=== PATIENT | female | born 1940 | race Caucasian/White ===

== ENCOUNTER 2020-02-24 15:47 | Inpatient (IN) ==
[2020-02-24 16:17] LABS: Bilirubin,Urine Negative (Negative); Blood, Urine Negative (Negative); Glucose,Urine (UA) Negative (Negative); Ketones,Urine Negative (Negative); Nitrite,Urine Negative (Negative); Protein,Urine Negative; RBC,Urine 2 /HPF (0-4); Squamous Epithelial Cell,Urine Occasional /HPF (0-10); Urine Appearance CLEAR (Clear); Urine Color Yellow (Yellow); Urine Specific Gravity 1.009 (1.001-1.035); Urine Urobilinogen < 2.0 EU/DL (0.2-1.0); WBC,Urine 4 /HPF (0-6)
[2020-02-24] MEDS ORDERED: LACTATED RINGERS 1,000 ML IV ONE ×2 (16:26→17:43)
[2020-02-24] MEDS ORDERED: CEFEPIME 2,000 MG in SODIUM CHLORIDE 0.9% 100 ML IV STA (16:28)
[2020-02-24 16:48] LABS: Basophils % 0.2 % (0.0-0.8); Eosinophils % 0.2 % (0.00-10.9); Hematocrit 31.1 VOL% (35.7-47.0); Hemoglobin 10.6 GM/DL (12.0-16.0); Immature Granulocytes % 0.5 %; Lymphocytes # 1.1 10*3/uL (1.4-4.0); Lymphocytes % 5.5 % (21.3-54.2); Mean Corpuscular HGB Conc 34.1 GM/DL (32-36); Mean Corpuscular Volume 94.8 FL (87-102); Monocytes % 5.4 % (1.7-12.7); Neutrophils % 88.2 % (38.7-73.9); Platelet Count 276 T/CUMM (130-400); Red Blood Count 3.28 MC/CUMM (3.8-5.5); Red Cell Distribution Width 12.9 % (9.3-17.3); White Blood Count 20.4 T/CUMM (4-12)
[2020-02-24 16:59] LABS: INR 1.1; PT Patient Result 11.9 SECS (9.8-11.9); Partial Thromboplastin Time 30.2 SECS (23.9-33.8)
[2020-02-24 17:05] LABS: Alanine Aminotransferase 81 U/L (13-56); Albumin 2.9 G/DL (3.4-5.0); Alkaline Phosphatase 175 U/L (45-117); Aspartate Amino Transferase 111 U/L (0-37); Blood Urea Nitrogen 16 MG/DL (7-18); Calcium 8.6 MG/DL (8.5-10.1); Estimated Glom Filtration Rate 45 ML/MIN; Glucose 273 MG/DL (74-106); Osmolality,Calculated 270.8 MOS/KG (273-304); Total Protein 7.2 G/DL (6.4-8.3)
[2020-02-24] MEDS ORDERED: SODIUM CHLORIDE 0.9% IV STA (17:17)
[2020-02-24] MEDS ORDERED: VANCOMYCIN IV STA (17:17)
[2020-02-24 18:30] LABS: Lymphocytes 4 % (20-55); Segmented Neutrophils 93 % (50-85); Total Cells Counted 100
[2020-02-24] MEDS ORDERED: ONDANSETRON 4 MG/2 ML VIAL IV PRN (19:44)
[2020-02-24] MEDS ORDERED: ACETAMINOPHEN 325 MG TABLET PO PRN (19:44)
[2020-02-24] MEDS ORDERED: DEXTROSE 50% 25 GM/50 ML VIAL IV PRN (22:04)
[2020-02-24] MEDS ORDERED: MAGNESIUM SULF RIDER 2 GM in PREMIX 1 EACH IV PRN (22:04)
[2020-02-24] MEDS ORDERED: GLUCAGON 1 MG VIAL IM PRN (22:04)
[2020-02-24] MEDS ORDERED: POTASSIUM CHLORIDE RIDER 10 MEQ in PREMIX 1 EACH IV PRN (22:04)
[2020-02-24] MEDS ORDERED: MAGNESIUM SULF RIDER 4 GM in PREMIX 1 EACH IV PRN (22:04)
[2020-02-25] MEDS: LACTATED RINGERS 1,000 ML IV SCH ×5 (00:38→21:31)
[2020-02-25] MEDS: CEFEPIME 1,000 MG in SODIUM CHLORIDE 0.9% 100 ML IV SCH ×3 (01:10→16:06)
[2020-02-25] MEDS: INSULIN LISPRO 100 UNIT/ML SUBCUT SCH ×4 (01:40→17:46)
[2020-02-25 06:29] LABS: Basophils % 0.2 % (0.0-0.8); Eosinophils # 0.1 10*3/uL (0.0-0.87); Eosinophils % 0.9 % (0.00-10.9); Hematocrit 31.4 VOL% (35.7-47.0); Hemoglobin 10.3 GM/DL (12.0-16.0); Immature Granulocytes % 0.3 %; Immature Granulocytes Absolute 0.04 #; Lymphocytes # 2.2 10*3/uL (1.4-4.0); Mean Corpuscular HGB Conc 32.8 GM/DL (32-36); Mean Corpuscular Volume 96.9 FL (87-102); Mean Platelet Volume 9.1 FL (9.6-12.0); Monocytes % 7.9 % (1.7-12.7); Neutrophils % 73.7 % (38.7-73.9); Platelet Count 216 T/CUMM (130-400); Red Blood Count 3.24 MC/CUMM (3.8-5.5); Red Cell Distribution Width 13.1 % (9.3-17.3)
[2020-02-25 06:41] LABS: INR 1.2; PT Patient Result 12.3 SECS (9.8-11.9)
[2020-02-25] MEDS: LEVOTHYROXINE 100 MCG TABLET PO SCH (06:51)
[2020-02-25 07:01] LABS: Band Neutrophils 4 % (0-10); Hypochromasia 1+; Lymphocytes 13 % (20-55); Microcytosis 1+; Segmented Neutrophils 80 % (50-85); Total Cells Counted 100
[2020-02-25 07:02] LABS: Platelet Estimate Normal
[2020-02-25 07:03] LABS: Albumin 2.8 G/DL (3.4-5.0); Bilirubin,Direct 0.26 MG/DL (0.0-0.20); Bilirubin,Indirect 0.5 MG/DL (0.0-1.0); Bilirubin,Total 0.8 MG/DL (0.2-1.0); Calcium 8.9 MG/DL (8.5-10.1); Osmolality,Calculated 274.8 MOS/KG (273-304); Total Protein 6.8 G/DL (6.4-8.3)
[2020-02-25] MEDS: GABAPENTIN 400 MG CAPSULE PO SCH ×3 (09:39→21:47)
[2020-02-25] MEDS: PANTOPRAZOLE 40 MG TABLET PO SCH (09:40)
[2020-02-25] MEDS: TORSEMIDE 20 MG TABLET PO SCH ×2 (09:40→21:47)
[2020-02-25] MEDS: SERTRALINE 25 MG TABLET PO SCH (09:43)
[2020-02-25] MEDS: oxyCODONE/ACETAMINOPHEN 5-325 MG TABLET PO SCH ×2 (15:35→21:48)
[2020-02-25] MEDS: MORPHINE IR 15 MG TABLET PO SCH ×2 (15:35→21:49)
[2020-02-25] MEDS: VANCOMYCIN INJ 1,750 MG in SODIUM CHLORIDE 0.9% 500 ML IV SCH (21:32)
[2020-02-25] MEDS: SIMVASTATIN 20 MG TABLET PO SCH (21:48)
[2020-02-26] MEDS: LACTATED RINGERS 1,000 ML IV SCH ×2 (00:27→18:58)
[2020-02-26] MEDS: INSULIN LISPRO 100 UNIT/ML SUBCUT SCH ×4 (00:28→17:20)
[2020-02-26] MEDS: CEFEPIME 1,000 MG in SODIUM CHLORIDE 0.9% 100 ML IV SCH ×3 (03:14→17:19)
[2020-02-26 06:06] LABS: Basophils % 0.3 % (0.0-0.8); Eosinophils # 0.3 10*3/uL (0.0-0.87); Eosinophils % 2.3 % (0.00-10.9); Hematocrit 32.8 VOL% (35.7-47.0); Hemoglobin 10.9 GM/DL (12.0-16.0); Immature Granulocytes % 0.5 %; Immature Granulocytes Absolute 0.06 #; Lymphocytes # 2.5 10*3/uL (1.4-4.0); Lymphocytes % 22.7 % (21.3-54.2); Mean Corpuscular HGB Conc 33.2 GM/DL (32-36); Mean Corpuscular Volume 95.9 FL (87-102); Mean Platelet Volume 9.1 FL (9.6-12.0); Monocytes % 10.9 % (1.7-12.7); Neutrophils % 63.3 % (38.7-73.9); Platelet Count 255 T/CUMM (130-400); Red Blood Count 3.42 MC/CUMM (3.8-5.5); Red Cell Distribution Width 12.9 % (9.3-17.3); White Blood Count 11.1 T/CUMM (4-12)
[2020-02-26 06:30] LABS: Albumin 2.7 G/DL (3.4-5.0); Bilirubin,Total 0.9 MG/DL (0.2-1.0); Calcium 8.8 MG/DL (8.5-10.1); Osmolality,Calculated 281.4 MOS/KG (273-304); Total Protein 7.2 G/DL (6.4-8.3)
[2020-02-26 06:31] LABS: Hypochromasia 1+; Microcytosis Slight; Platelet Estimate Adequate
[2020-02-26] MEDS: LEVOTHYROXINE 100 MCG TABLET PO SCH (06:32)
[2020-02-26] MEDS: PANTOPRAZOLE 40 MG TABLET PO SCH (09:55)
[2020-02-26] MEDS: TORSEMIDE 20 MG TABLET PO SCH ×2 (10:09→21:59)
[2020-02-26] MEDS: MORPHINE IR 15 MG TABLET PO SCH ×4 (10:09→21:58)
[2020-02-26] MEDS: GABAPENTIN 400 MG CAPSULE PO SCH ×4 (10:09→21:59)
[2020-02-26] MEDS: SERTRALINE 25 MG TABLET PO SCH (10:10)
[2020-02-26] MEDS: oxyCODONE/ACETAMINOPHEN 5-325 MG TABLET PO SCH ×4 (10:11→21:59)
[2020-02-26] MEDS ORDERED: BACITRACIN OINT 0.9 GM PACK TOP ONE (10:32)
[2020-02-26] MEDS ORDERED: LIDOCAINE 1%/EPI INJ 20 ML VIAL ONE (10:33)
[2020-02-26] MEDS ORDERED: LIDOCAINE 1% 20 ML VIAL ONE (10:53)
[2020-02-26] MEDS ORDERED: HYDROmorphone 2 MG/1 ML VIAL IV PRN (12:33)
[2020-02-26] MEDS ORDERED: PROMETHAZINE INJ 25 MG in SODIUM CHLORIDE 0.9% 50 ML IV PRN (12:33)
[2020-02-26] MEDS ORDERED: diphenhydrAMINE 50 MG/1 ML VIAL IV PRN (12:33)
[2020-02-26] MEDS ORDERED: ONDANSETRON 4 MG/2 ML VIAL IV PRN (12:33)
[2020-02-26] MEDS ORDERED: MEPERIDINE 25 MG/1 ML VIAL IV PRN (12:33)
[2020-02-26] MEDS ORDERED: propofoL 200 MG/20 ML VIAL IV ONE (12:42)
[2020-02-26] MEDS ORDERED: PHENYLEPHRINE 1 MG/10 ML SYRINGE IV ONE (12:43)
[2020-02-26] MEDS ORDERED: ROCURONIUM 100 MG/10 ML VIAL IV ONE (12:43)
[2020-02-26] MEDS ORDERED: LIDOCAINE 2% 5 ML VIAL ONE (12:43)
[2020-02-26] MEDS ORDERED: MIDAZOLAM 2 MG/2 ML VIAL ONE (12:43)
[2020-02-26] MEDS ORDERED: SEVOFLURANE 1 UNIT/15 MINUTE INH ONE (12:43)
[2020-02-26] MEDS ORDERED: GLYCOPYRROLATE 0.4 MG/2 ML VIAL ONE (12:43)
[2020-02-26] MEDS ORDERED: fentaNYL 100 MCG/2 ML VIAL ONE (12:43)
[2020-02-26] MEDS ORDERED: ONDANSETRON 4 MG/2 ML VIAL ONE (12:43)
[2020-02-26] MEDS ORDERED: NEOSTIGMINE 10 MG/10 ML VIAL ONE (12:43)
[2020-02-26] MEDS: SIMVASTATIN 20 MG TABLET PO SCH (21:59)
[2020-02-26] MEDS: VANCOMYCIN INJ 1,750 MG in SODIUM CHLORIDE 0.9% 500 ML IV SCH (21:59)
[2020-02-27] MEDS: INSULIN LISPRO 100 UNIT/ML SUBCUT SCH ×4 (01:16→18:21)
[2020-02-27] MEDS: CEFEPIME 1,000 MG in SODIUM CHLORIDE 0.9% 100 ML IV SCH ×3 (01:48→16:37)
[2020-02-27] MEDS: LEVOTHYROXINE 100 MCG TABLET PO SCH (06:17)
[2020-02-27] MEDS: LACTATED RINGERS 1,000 ML IV SCH ×2 (06:17→22:53)
[2020-02-27] MEDS: TORSEMIDE 20 MG TABLET PO SCH ×2 (08:17→21:48)
[2020-02-27] MEDS: GABAPENTIN 400 MG CAPSULE PO SCH ×3 (08:17→21:48)
[2020-02-27] MEDS: oxyCODONE/ACETAMINOPHEN 5-325 MG TABLET PO SCH ×3 (08:17→21:48)
[2020-02-27] MEDS: SERTRALINE 25 MG TABLET PO SCH (08:18)
[2020-02-27] MEDS: MORPHINE IR 15 MG TABLET PO SCH ×4 (08:18→21:47)
[2020-02-27] MEDS: PANTOPRAZOLE 40 MG TABLET PO SCH (08:18)
[2020-02-27 10:19] LABS: Basophils % 0.5 % (0.0-0.8); Eosinophils # 0.1 10*3/uL (0.0-0.87); Hematocrit 32.9 VOL% (35.7-47.0); Hemoglobin 10.8 GM/DL (12.0-16.0); Immature Granulocytes % 1.2 %; Immature Granulocytes Absolute 0.07 #; Lymphocytes # 0.7 10*3/uL (1.4-4.0); Lymphocytes % 11.9 % (21.3-54.2); Mean Corpuscular HGB Conc 32.8 GM/DL (32-36); Mean Corpuscular Volume 96.5 FL (87-102); Mean Platelet Volume 8.6 FL (9.6-12.0); Monocytes % 8.7 % (1.7-12.7); Neutrophils % 76.7 % (38.7-73.9); Platelet Count 285 T/CUMM (130-400); Red Blood Count 3.41 MC/CUMM (3.8-5.5)
[2020-02-27 10:29] LABS: PT Patient Result 11.2 SECS (9.8-11.9)
[2020-02-27] MEDS ORDERED: oxyCODONE/ACETAMINOPHEN 5-325 MG TABLET PO PRN (12:34)
[2020-02-27] MEDS ORDERED: MORPHINE ER 30 MG TABLET PO SCH (13:00)
[2020-02-27] MEDS ORDERED: BACITRACIN OINT 0.9 GM PACK TOP ONE (14:12)
[2020-02-27] MEDS: CALCIUM (CARBONATE)/VITAMIN D 600 MG-400 UNIT TABLET PO SCH ×2 (14:13→21:49)
[2020-02-27] MEDS ORDERED: LIDOCAINE 1%/EPI INJ 20 ML VIAL ONE (14:13)
[2020-02-27] MEDS: Cyanocobalamin (Vitamin B-12) [Vitamin B-12] 5,000 mcg Tablet, S SL SCH ×2 (14:15→22:52)
[2020-02-27] MEDS: PYRIDOXINE 100 MG TABLET PO SCH ×2 (15:42→21:49)
[2020-02-27] MEDS ORDERED: METOCLOPRAMIDE 10 MG/2 ML VIAL ONE (19:43)
[2020-02-27] MEDS ORDERED: propofoL 200 MG/20 ML VIAL IV ONE (20:40)
[2020-02-27] MEDS ORDERED: LIDOCAINE 2% 5 ML VIAL ONE (20:40)
[2020-02-27] MEDS ORDERED: MIDAZOLAM 2 MG/2 ML VIAL ONE (20:40)
[2020-02-27] MEDS ORDERED: ONDANSETRON 4 MG/2 ML VIAL ONE (20:40)
[2020-02-27] MEDS: SIMVASTATIN 20 MG TABLET PO SCH (21:48)
[2020-02-27] MEDS: CHOLECALCIFEROL 5,000 UNIT TABLET PO SCH (21:49)
[2020-02-27] MEDS: VANCOMYCIN INJ 1,750 MG in SODIUM CHLORIDE 0.9% 500 ML IV SCH (21:50)
[2020-02-28] MEDS: INSULIN LISPRO 100 UNIT/ML SUBCUT SCH ×4 (00:58→19:03)
[2020-02-28] MEDS: CEFEPIME 1,000 MG in SODIUM CHLORIDE 0.9% 100 ML IV SCH ×3 (00:58→16:47)
[2020-02-28 05:19] LABS: Basophils % 0.4 % (0.0-0.8); Eosinophils # 0.2 10*3/uL (0.0-0.87); Eosinophils % 2.8 % (0.00-10.9); Hematocrit 30.5 VOL% (35.7-47.0); Hemoglobin 9.9 GM/DL (12.0-16.0); Immature Granulocytes % 0.9 %; Immature Granulocytes Absolute 0.06 #; Lymphocytes # 1.9 10*3/uL (1.4-4.0); Lymphocytes % 28.2 % (21.3-54.2); Mean Corpuscular HGB Conc 32.5 GM/DL (32-36); Mean Corpuscular Volume 96.5 FL (87-102); Mean Platelet Volume 8.5 FL (9.6-12.0); Monocytes % 14.5 % (1.7-12.7); Neutrophils % 53.2 % (38.7-73.9); Platelet Count 308 T/CUMM (130-400); Red Blood Count 3.16 MC/CUMM (3.8-5.5); Red Cell Distribution Width 12.9 % (9.3-17.3); White Blood Count 6.7 T/CUMM (4-12)
[2020-02-28 05:45] LABS: Hypochromasia 1+; Microcytosis Slight; Ovalocytes Slight; Platelet Estimate Adequate
[2020-02-28] MEDS: LEVOTHYROXINE 100 MCG TABLET PO SCH (05:50)
[2020-02-28 05:51] LABS: Thyroid Stimulating Hormone 13.2 uIU/ml (0.358-3.74)
[2020-02-28 05:53] LABS: Albumin 2.3 G/DL (3.4-5.0); Bilirubin,Total 0.9 MG/DL (0.2-1.0); Calcium 8.4 MG/DL (8.5-10.1); Total Protein 6.3 G/DL (6.4-8.3)
[2020-02-28] MEDS ORDERED: POTASSIUM CHLORIDE RIDER 10 MEQ in PREMIX 1 EACH IV PRN (06:08)
[2020-02-28] MEDS: POTASSIUM CHLORIDE RIDER 10 MEQ in PREMIX 1 EACH IV SCH ×4 (08:59→13:47)
[2020-02-28] MEDS: GABAPENTIN 400 MG CAPSULE PO SCH ×3 (09:00→20:45)
[2020-02-28] MEDS: oxyCODONE/ACETAMINOPHEN 5-325 MG TABLET PO SCH (09:00)
[2020-02-28] MEDS: PANTOPRAZOLE 40 MG TABLET PO SCH (09:02)
[2020-02-28] MEDS: CALCIUM (CARBONATE)/VITAMIN D 600 MG-400 UNIT TABLET PO SCH ×3 (09:02→20:45)
[2020-02-28] MEDS: TORSEMIDE 20 MG TABLET PO SCH ×3 (09:02→20:51)
[2020-02-28] MEDS: glipiZIDE 5 MG TABLET PO SCH (09:02)
[2020-02-28] MEDS: SERTRALINE 25 MG TABLET PO SCH (09:02)
[2020-02-28] MEDS: ASPIRIN EC 81 MG TABLET PO SCH (09:02)
[2020-02-28] MEDS: PYRIDOXINE 100 MG TABLET PO SCH ×3 (09:03→20:45)
[2020-02-28] MEDS: MORPHINE IR 15 MG TABLET PO SCH ×3 (10:07→20:44)
[2020-02-28] MEDS: Cyanocobalamin (Vitamin B-12) [Vitamin B-12] 5,000 mcg Tablet, S SL SCH ×3 (10:13→20:56)
[2020-02-28] MEDS: VANCOMYCIN INJ 1,750 MG in SODIUM CHLORIDE 0.9% 500 ML IV SCH (20:37)
[2020-02-28] MEDS: SIMVASTATIN 20 MG TABLET PO SCH (20:45)
[2020-02-28] MEDS: CHOLECALCIFEROL 5,000 UNIT TABLET PO SCH (20:45)
[2020-02-28] MEDS: POTASSIUM CHLORIDE 20 MEQ TABLET PO PRN (21:37)
[2020-02-29] MEDS: POTASSIUM CHLORIDE 20 MEQ TABLET PO PRN ×3 (00:10→03:09)
[2020-02-29] MEDS: CEFEPIME 1,000 MG in SODIUM CHLORIDE 0.9% 100 ML IV SCH ×2 (00:29→08:58)
[2020-02-29] MEDS: INSULIN LISPRO 100 UNIT/ML SUBCUT SCH ×2 (01:01→05:41)
[2020-02-29 06:15] LABS: Basophils # 0.1 10*3/uL (0.0-0.2); Basophils % 0.6 % (0.0-0.8); Eosinophils # 0.3 10*3/uL (0.0-0.87); Eosinophils % 4.2 % (0.00-10.9); Immature Granulocytes % 2.4 %; Immature Granulocytes Absolute 0.19 #; Lymphocytes # 2.6 10*3/uL (1.4-4.0); Lymphocytes % 33.3 % (21.3-54.2); Mean Corpuscular HGB Conc 32.3 GM/DL (32-36); Mean Corpuscular Volume 96.3 FL (87-102); Mean Platelet Volume 8.5 FL (9.6-12.0); Monocytes % 11.2 % (1.7-12.7); Neutrophils % 48.3 % (38.7-73.9); Platelet Count 341 T/CUMM (130-400); Red Blood Count 3.22 MC/CUMM (3.8-5.5); Red Cell Distribution Width 12.8 % (9.3-17.3); White Blood Count 7.9 T/CUMM (4-12)
[2020-02-29] MEDS ORDERED: LEVOTHYROXINE 112 MCG TABLET PO SCH (06:30)
[2020-02-29 06:42] LABS: Albumin 2.4 G/DL (3.4-5.0); Osmolality,Calculated 280.5 MOS/KG (273-304); Total Protein 6.5 G/DL (6.4-8.3)
[2020-02-29 06:47] LABS: Eosinophils 3 % (0-10); Hypochromasia Slight; Lymphocytes 31 % (20-55); Myelocytes 2 %; Nucleated Red Blood Cells 3 (0-5); Platelet Estimate Normal; Segmented Neutrophils 56 % (50-85); Total Cells Counted 100
[2020-02-29] MEDS: MORPHINE IR 15 MG TABLET PO SCH (08:59)
[2020-02-29] MEDS: GABAPENTIN 400 MG CAPSULE PO SCH (09:00)
[2020-02-29] MEDS ORDERED: SULFAMETHOX/TRIMETHOPRIM 800-160 MG TABLET PO SCH (09:00)
[2020-02-29] MEDS ORDERED: POTASSIUM CHLORIDE 10 MEQ TABLET PO SCH (09:00)
[2020-02-29] MEDS: glipiZIDE 5 MG TABLET PO SCH (09:01)
[2020-02-29] MEDS: PANTOPRAZOLE 40 MG TABLET PO SCH (09:01)
[2020-02-29] MEDS: CALCIUM (CARBONATE)/VITAMIN D 600 MG-400 UNIT TABLET PO SCH (09:01)
[2020-02-29] MEDS: PYRIDOXINE 100 MG TABLET PO SCH (09:01)
[2020-02-29] MEDS: SERTRALINE 25 MG TABLET PO SCH (09:01)
[2020-02-29] MEDS: ASPIRIN EC 81 MG TABLET PO SCH (09:01)
[2020-02-29] MEDS: TORSEMIDE 20 MG TABLET PO SCH (09:02)
[2020-02-29] MEDS: Cyanocobalamin (Vitamin B-12) [Vitamin B-12] 5,000 mcg Tablet, S SL SCH (09:04)
[2020-02-29 12:12] VITALS: BP 122/57
== END 2020-02-29 12:27 | disposition home health service (06) | DRG 28 ==
LOC: N.ED 15:47 → N.EDINP 19:43 → N.TELES 20:27 → N.TELEN 22:44
PROVIDERS: ADMIT Family Medicine; ATTEND Family Medicine

== ENCOUNTER 2020-08-31 04:56 | Inpatient (IN) ==
[2020-08-31 05:51] LABS: Basophils % 0.2 % (0.0-0.8); Eosinophils # 0.2 10*3/uL (0.0-0.87); Eosinophils % 2.7 % (0.00-10.9); Hematocrit 34.3 VOL% (35.7-47.0); Hemoglobin 11.3 GM/DL (12.0-16.0); Immature Granulocytes % 0.3 %; Immature Granulocytes Absolute 0.02 #; Lymphocytes # 1.8 10*3/uL (1.4-4.0); Lymphocytes % 28.8 % (21.3-54.2); Mean Corpuscular HGB Conc 32.9 GM/DL (32-36); Mean Corpuscular Volume 93.2 FL (87-102); Monocytes % 14.9 % (1.7-12.7); Neutrophils % 53.1 % (38.7-73.9); Platelet Count 207 T/CUMM (130-400); Red Blood Count 3.68 MC/CUMM (3.8-5.5); White Blood Count 6.4 T/CUMM (4-12)
[2020-08-31 06:13] LABS: Albumin 3.7 G/DL (3.4-5.0); Bilirubin,Total 1.3 MG/DL (0.2-1.0); Calcium 9.1 MG/DL (8.5-10.1); Potassium 3.6 MMOL/L (3.5-5.1); Total Protein 7.1 G/DL (6.4-8.2)
[2020-08-31] MEDS ORDERED: HYDROmorphone 2 MG/1 ML VIAL IV STA (07:18)
[2020-08-31] MEDS ORDERED: ONDANSETRON 4 MG/2 ML VIAL IV STA (07:18)
[2020-08-31] MEDS ORDERED: ACETAMINOPHEN 325 MG TABLET PO PRN (08:51)
[2020-08-31] MEDS ORDERED: ONDANSETRON 4 MG/2 ML VIAL IV PRN (08:51)
[2020-08-31] MEDS ORDERED: HYDROmorphone 2 MG/1 ML VIAL IV PRN (08:51)
[2020-08-31] MEDS ORDERED: GLUCAGON 1 MG VIAL IM PRN (08:56)
[2020-08-31] MEDS ORDERED: DEXTROSE 50% 25 GM/50 ML VIAL IV PRN (08:56)
[2020-08-31] MEDS ORDERED: POTASSIUM CHLORIDE 20 MEQ TABLET PO SCH (09:00)
[2020-08-31] MEDS ORDERED: oxyCODONE/ACETAMINOPHEN 5-325 MG TABLET PO PRN (11:38)
[2020-08-31] MEDS: Cyanocobalamin (Vitamin B-12) [Vitamin B-12] 5,000 mcg Tablet, S SL SCH ×3 (11:51→20:49)
[2020-08-31] MEDS: GLUCOSAM CHOND MSM1 C MANG BOR PO SCH ×3 (11:51→20:49)
[2020-08-31] MEDS: [UNRECOGNIZED DRUG - OTHER] PO SCH ×3 (11:51→20:49)
[2020-08-31] MEDS: VIT C E ZN COPPR LUTEIN ZEAXAN PO SCH ×3 (11:52→20:50)
[2020-08-31] MEDS: TORSEMIDE 20 MG TABLET PO SCH ×2 (12:15→20:49)
[2020-08-31] MEDS: DOCUSATE SODIUM 100 MG CAPSULE PO SCH ×2 (12:15→20:49)
[2020-08-31] MEDS: ASPIRIN EC 81 MG TABLET PO SCH (12:16)
[2020-08-31] MEDS: CALCIUM (CARBONATE)/VITAMIN D 600 MG-400 UNIT TABLET PO SCH ×3 (12:16→20:46)
[2020-08-31] MEDS: PYRIDOXINE 100 MG TABLET PO SCH ×3 (12:16→20:46)
[2020-08-31] MEDS: GABAPENTIN 400 MG CAPSULE PO SCH ×3 (12:16→20:45)
[2020-08-31] MEDS: VITAMIN E 400 UNIT CAPSULE PO SCH ×3 (12:17→20:46)
[2020-08-31] MEDS: INSULIN LISPRO 100 UNIT/ML SUBCUT SCH ×3 (12:17→20:50)
[2020-08-31] MEDS: SERTRALINE 25 MG TABLET PO SCH (12:17)
[2020-08-31] MEDS: SIMVASTATIN 20 MG TABLET PO SCH (12:17)
[2020-08-31] MEDS: POTASSIUM CHLORIDE 20 MEQ TABLET PO SCH (12:17)
[2020-08-31] MEDS: PANTOPRAZOLE 40 MG TABLET PO SCH (12:17)
[2020-08-31] MEDS: SODIUM CHLORIDE 0.45% 1,000 ML IV SCH (12:18)
[2020-08-31] MEDS: glipiZIDE 5 MG TABLET PO SCH (12:35)
[2020-08-31] MEDS: MEROPENEM 500 MG in SODIUM CHLORIDE 0.9% 100 ML IV SCH ×2 (14:15→18:28)
[2020-08-31] MEDS: MORPHINE IR 15 MG TABLET PO SCH ×2 (14:15→20:46)
[2020-08-31 16:27] LABS: Bacteria,Urine Occasional /HPF (Few); Bilirubin,Urine Negative (Negative); Blood, Urine Negative (Negative); Glucose,Urine (UA) Negative (Negative); Ketones,Urine Negative (Negative); Nitrite,Urine Negative (Negative); Protein,Urine Negative; RBC,Urine 1 /HPF (0-4); Squamous Epithelial Cell,Urine Occasional /HPF (0-10); Urine Appearance CLEAR (Clear); Urine Color Yellow (Yellow)
[2020-08-31] MEDS: VANCOMYCIN INJ 1,250 MG in SODIUM CHLORIDE 0.9% 250 ML IV SCH (16:35)
[2020-08-31] MEDS: methylPREDNISolone SOD SUC 40 MG/1 ML VIAL IV SCH (18:28)
[2020-08-31] MEDS: MULTIVITAMIN (CENTRUM) TABLET PO SCH (20:45)
[2020-08-31] MEDS: CHOLECALCIFEROL 5,000 UNIT TABLET PO SCH (20:46)
[2020-09-01] MEDS: methylPREDNISolone SOD SUC 40 MG/1 ML VIAL IV SCH ×2 (00:16→08:57)
[2020-09-01] MEDS: MEROPENEM 500 MG in SODIUM CHLORIDE 0.9% 100 ML IV SCH ×4 (00:16→21:26)
[2020-09-01] MEDS: SODIUM CHLORIDE 0.45% 1,000 ML IV SCH ×3 (03:31→22:17)
[2020-09-01] MEDS: LEVOTHYROXINE 112 MCG TABLET PO SCH (06:02)
[2020-09-01 06:53] LABS: Basophils % 0.2 % (0.0-0.8); Hematocrit 35.1 VOL% (35.7-47.0); Hemoglobin 11.5 GM/DL (12.0-16.0); Immature Granulocytes % 0.6 %; Immature Granulocytes Absolute 0.03 #; Lymphocytes # 0.8 10*3/uL (1.4-4.0); Lymphocytes % 14.3 % (21.3-54.2); Mean Corpuscular HGB Conc 32.8 GM/DL (32-36); Mean Corpuscular Volume 94.6 FL (87-102); Mean Platelet Volume 9.5 FL (9.6-12.0); Monocytes % 1.9 % (1.7-12.7); Platelet Count 247 T/CUMM (130-400); Red Blood Count 3.71 MC/CUMM (3.8-5.5); Red Cell Distribution Width 12.9 % (9.3-17.3); White Blood Count 5.4 T/CUMM (4-12)
[2020-09-01 07:16] LABS: Albumin 3.1 G/DL (3.4-5.0); Bilirubin,Total 0.9 MG/DL (0.2-1.0); Osmolality,Calculated 282.7 MOS/KG (273-304); Potassium 3.8 MMOL/L (3.5-5.1); Risk Ratio 3.11; Thyroid Stimulating Hormone 2.73 uIU/ml (0.358-3.74); Total Protein 7.1 G/DL (6.4-8.2); VLDL CHOLESTEROL 14.4 MG/DL
[2020-09-01 07:17] LABS: Calcium 9.1 MG/DL (8.5-10.1); Potassium 3.9 MMOL/L (3.5-5.1)
[2020-09-01 07:55] LABS: Anisocytosis 1+; Platelet Estimate Normal; Spherocytes Few
[2020-09-01] MEDS: INSULIN LISPRO 100 UNIT/ML SUBCUT SCH ×4 (08:45→21:24)
[2020-09-01] MEDS: ASPIRIN EC 81 MG TABLET PO SCH (08:45)
[2020-09-01] MEDS: CALCIUM (CARBONATE)/VITAMIN D 600 MG-400 UNIT TABLET PO SCH ×3 (08:46→21:22)
[2020-09-01] MEDS: SERTRALINE 25 MG TABLET PO SCH (08:46)
[2020-09-01] MEDS: DOCUSATE SODIUM 100 MG CAPSULE PO SCH ×2 (08:46→21:22)
[2020-09-01] MEDS: VITAMIN E 400 UNIT CAPSULE PO SCH ×3 (08:46→21:23)
[2020-09-01] MEDS: GABAPENTIN 400 MG CAPSULE PO SCH ×3 (08:46→21:22)
[2020-09-01] MEDS: SIMVASTATIN 20 MG TABLET PO SCH (08:46)
[2020-09-01] MEDS: glipiZIDE 5 MG TABLET PO SCH (08:46)
[2020-09-01] MEDS: POTASSIUM CHLORIDE 20 MEQ TABLET PO SCH ×2 (08:47→15:52)
[2020-09-01] MEDS: TORSEMIDE 20 MG TABLET PO SCH ×2 (08:47→21:23)
[2020-09-01] MEDS: PANTOPRAZOLE 40 MG TABLET PO SCH (08:47)
[2020-09-01] MEDS: PYRIDOXINE 100 MG TABLET PO SCH ×3 (08:47→21:22)
[2020-09-01] MEDS: MORPHINE IR 15 MG TABLET PO SCH ×3 (08:56→22:13)
[2020-09-01] MEDS: VANCOMYCIN INJ 1,250 MG in SODIUM CHLORIDE 0.9% 250 ML IV SCH (09:00)
[2020-09-01] MEDS: [UNRECOGNIZED DRUG - OTHER] PO SCH ×3 (11:17→22:24)
[2020-09-01] MEDS: VIT C E ZN COPPR LUTEIN ZEAXAN PO SCH ×3 (11:17→22:24)
[2020-09-01] MEDS: Cyanocobalamin (Vitamin B-12) [Vitamin B-12] 5,000 mcg Tablet, S SL SCH ×3 (11:17→22:24)
[2020-09-01] MEDS: GLUCOSAM CHOND MSM1 C MANG BOR PO SCH ×3 (11:17→22:24)
[2020-09-01] MEDS: CHOLECALCIFEROL 5,000 UNIT TABLET PO SCH (21:23)
[2020-09-01] MEDS: MULTIVITAMIN (CENTRUM) TABLET PO SCH (21:23)
[2020-09-02] MEDS: MEROPENEM 500 MG in SODIUM CHLORIDE 0.9% 100 ML IV SCH ×4 (02:01→22:20)
[2020-09-02] MEDS: VANCOMYCIN INJ 1,250 MG in SODIUM CHLORIDE 0.9% 250 ML IV SCH ×2 (04:41→22:50)
[2020-09-02 05:25] LABS: Basophils % 0.2 % (0.0-0.8); Eosinophils # 0.1 10*3/uL (0.0-0.87); Eosinophils % 0.6 % (0.00-10.9); Hematocrit 32.3 VOL% (35.7-47.0); Hemoglobin 10.8 GM/DL (12.0-16.0); Immature Granulocytes % 0.3 %; Immature Granulocytes Absolute 0.03 #; Lymphocytes # 3.1 10*3/uL (1.4-4.0); Lymphocytes % 32.8 % (21.3-54.2); Mean Corpuscular HGB Conc 33.4 GM/DL (32-36); Mean Corpuscular Volume 92.3 FL (87-102); Mean Platelet Volume 9.3 FL (9.6-12.0); Monocytes % 9.9 % (1.7-12.7); Neutrophils % 56.2 % (38.7-73.9); Platelet Count 275 T/CUMM (130-400); White Blood Count 9.6 T/CUMM (4-12)
[2020-09-02 05:58] LABS: Alanine Aminotransferase 24 U/L (13-56); Albumin 3.1 G/DL (3.4-5.0); Alkaline Phosphatase 80 U/L (45-117); Aspartate Amino Transferase 17 U/L (0-37); Bilirubin,Total < 0.39 MG/DL (0.2-1.0); Blood Urea Nitrogen 19 MG/DL (7-18); Calcium 8.7 MG/DL (8.5-10.1); Carbon Dioxide 32 MMOL/L (21-32); Estimated Glom Filtration Rate 71 ML/MIN; Glucose 138 MG/DL (74-106); Osmolality,Calculated 278.7 MOS/KG (273-304); Potassium 3.6 MMOL/L (3.5-5.1); Sodium 138 MMOL/L (136-145); Total Protein 6.6 G/DL (6.4-8.2); Uric Acid 4.1 MG/DL (2.6-6.0)
[2020-09-02] MEDS: LEVOTHYROXINE 112 MCG TABLET PO SCH (06:34)
[2020-09-02] MEDS ORDERED: ZALEPLON 5 MG CAPSULE PO PRN (08:16)
[2020-09-02] MEDS: DOCUSATE SODIUM 100 MG CAPSULE PO SCH ×2 (08:52→22:22)
[2020-09-02] MEDS: POTASSIUM CHLORIDE 20 MEQ TABLET PO SCH ×2 (08:53→12:48)
[2020-09-02] MEDS: PANTOPRAZOLE 40 MG TABLET PO SCH (08:53)
[2020-09-02] MEDS: TORSEMIDE 20 MG TABLET PO SCH ×3 (08:53→22:22)
[2020-09-02] MEDS: GABAPENTIN 400 MG CAPSULE PO SCH ×3 (08:54→22:21)
[2020-09-02] MEDS: VITAMIN E 400 UNIT CAPSULE PO SCH ×3 (08:55→22:21)
[2020-09-02] MEDS: CALCIUM (CARBONATE)/VITAMIN D 600 MG-400 UNIT TABLET PO SCH ×3 (08:55→22:22)
[2020-09-02] MEDS: PYRIDOXINE 100 MG TABLET PO SCH ×3 (08:56→22:22)
[2020-09-02] MEDS: MORPHINE IR 15 MG TABLET PO SCH ×3 (08:57→22:20)
[2020-09-02] MEDS: ASPIRIN EC 81 MG TABLET PO SCH (08:57)
[2020-09-02] MEDS: SIMVASTATIN 20 MG TABLET PO SCH (08:57)
[2020-09-02] MEDS: glipiZIDE 5 MG TABLET PO SCH (08:59)
[2020-09-02] MEDS: SERTRALINE 25 MG TABLET PO SCH (10:19)
[2020-09-02] MEDS: INSULIN LISPRO 100 UNIT/ML SUBCUT SCH ×4 (10:20→22:19)
[2020-09-02] MEDS: predniSONE 10 MG TABLET PO SCH (12:48)
[2020-09-02] MEDS: methylPREDNISolone SOD SUC 40 MG/1 ML VIAL IV SCH ×2 (12:48→18:22)
[2020-09-02] MEDS: SODIUM CHLORIDE 0.45% 1,000 ML IV SCH (16:19)
[2020-09-02] MEDS ORDERED: SERTRALINE 25 MG TABLET PO SCH (21:00)
[2020-09-02] MEDS: CHOLECALCIFEROL 5,000 UNIT TABLET PO SCH (22:21)
[2020-09-02] MEDS: MULTIVITAMIN (CENTRUM) TABLET PO SCH (22:22)
[2020-09-03] MEDS: MEROPENEM 500 MG in SODIUM CHLORIDE 0.9% 100 ML IV SCH ×2 (03:20→08:35)
[2020-09-03] MEDS: methylPREDNISolone SOD SUC 40 MG/1 ML VIAL IV SCH (03:21)
[2020-09-03 06:01] LABS: Basophils % 0.2 % (0.0-0.8); Eosinophils % 0.1 % (0.00-10.9); Hemoglobin 11.4 GM/DL (12.0-16.0); Immature Granulocytes % 0.8 %; Immature Granulocytes Absolute 0.07 #; Lymphocytes # 1.7 10*3/uL (1.4-4.0); Mean Corpuscular HGB Conc 32.6 GM/DL (32-36); Mean Corpuscular Volume 93.6 FL (87-102); Mean Platelet Volume 9.1 FL (9.6-12.0); Monocytes % 5.9 % (1.7-12.7); Platelet Count 308 T/CUMM (130-400); Red Blood Count 3.74 MC/CUMM (3.8-5.5); Red Cell Distribution Width 12.8 % (9.3-17.3)
[2020-09-03] MEDS: LEVOTHYROXINE 112 MCG TABLET PO SCH (06:18)
[2020-09-03 06:35] LABS: Calcium 9.1 MG/DL (8.5-10.1); Osmolality,Calculated 279.8 MOS/KG (273-304); Potassium 4.4 MMOL/L (3.5-5.1)
[2020-09-03 07:56] VITALS: BP 142/56
[2020-09-03] MEDS: predniSONE 10 MG TABLET PO SCH (08:30)
[2020-09-03] MEDS: SIMVASTATIN 20 MG TABLET PO SCH (08:30)
[2020-09-03] MEDS: glipiZIDE 5 MG TABLET PO SCH (08:30)
[2020-09-03] MEDS: PANTOPRAZOLE 40 MG TABLET PO SCH (08:30)
[2020-09-03] MEDS: POTASSIUM CHLORIDE 20 MEQ TABLET PO SCH (08:31)
[2020-09-03] MEDS: GABAPENTIN 400 MG CAPSULE PO SCH (08:31)
[2020-09-03] MEDS: CALCIUM (CARBONATE)/VITAMIN D 600 MG-400 UNIT TABLET PO SCH (08:32)
[2020-09-03] MEDS: VITAMIN E 400 UNIT CAPSULE PO SCH (08:33)
[2020-09-03] MEDS: PYRIDOXINE 100 MG TABLET PO SCH (08:33)
[2020-09-03] MEDS: INSULIN LISPRO 100 UNIT/ML SUBCUT SCH (08:34)
[2020-09-03] MEDS: ASPIRIN EC 81 MG TABLET PO SCH (08:34)
[2020-09-03] MEDS: MORPHINE IR 15 MG TABLET PO SCH (08:35)
[2020-09-03] MEDS: DOCUSATE SODIUM 100 MG CAPSULE PO SCH (08:42)
[2020-09-03] MEDS: TORSEMIDE 20 MG TABLET PO SCH (08:42)
[2020-09-03] MEDS ORDERED: SILVER SULFADIAZINE 1% CREAM 25 GM TUBE TOP SCH (09:00)
[2020-09-03] MEDS: SODIUM CHLORIDE 0.45% 1,000 ML IV SCH (10:51)
== END 2020-09-03 11:01 | disposition home health service (06) | DRG 603 ==
LOC: N.EDINP 04:56 → N.ED 04:56 → N.EDINP 10:21 → N.5E 10:32
PROVIDERS: ADMIT Family Medicine; ATTEND Family Medicine

== ENCOUNTER 2021-11-14 11:56 | Inpatient (IN) ==
[2021-11-14 13:58] LABS: Basophils # 0.1 10*3/uL (0.0-0.2); Basophils % 0.4 % (0.0-0.8); Eosinophils # 0.1 10*3/uL (0.0-0.87); Eosinophils % 0.5 % (0.00-10.9); Hematocrit 31.5 VOL% (35.7-47.0); Hemoglobin 10.5 GM/DL (12.0-16.0); Immature Granulocytes % 0.3 %; Immature Granulocytes Absolute 0.04 #; Lymphocytes # 1.9 10*3/uL (1.4-4.0); Lymphocytes % 15.9 % (21.3-54.2); Mean Corpuscular HGB Conc 33.3 GM/DL (32-36); Mean Corpuscular Volume 94.6 FL (87-102); Mean Platelet Volume 8.8 FL (9.6-12.0); Monocytes # 1.7 10*3/uL (0.11-0.8); Monocytes % 13.7 % (1.7-12.7); Neutrophils % 69.2 % (38.7-73.9); Platelet Count 291 T/CUMM (130-400); Red Blood Count 3.33 MC/CUMM (3.8-5.5); Red Cell Distribution Width 12.5 % (9.3-17.3); White Blood Count 12.2 T/CUMM (4-12)
[2021-11-14 14:19] LABS: Albumin 3.3 G/DL (3.4-5.0); Bilirubin,Total 0.5 MG/DL (0.20-1.00); Calcium 9.1 MG/DL (8.5-10.1); Osmolality,Calculated 271.1 MOS/KG (273-304); Potassium 3.6 MMOL/L (3.5-5.1); Total Protein 7.8 G/DL (6.4-8.2)
[2021-11-14] MEDS ORDERED: VANCOMYCIN INJ 1,000 MG in SODIUM CHLORIDE 0.9% 250 ML IV STA (15:00)
[2021-11-14] MEDS ORDERED: SIMETHICONE CHEW 125 MG TABLET PO PRN (15:35)
[2021-11-14] MEDS ORDERED: ALUMINUM/MAGNES/SIMETH MAX STR 30 ML UDCUP PO PRN (15:35)
[2021-11-14] MEDS ORDERED: ACETAMINOPHEN 325 MG TABLET PO PRN (15:35)
[2021-11-14] MEDS ORDERED: DOCUSATE SODIUM 100 MG CAPSULE PO PRN (15:35)
[2021-11-14] MEDS ORDERED: DEXTROSE 50% 25 GM/50 ML VIAL IV PRN (15:35)
[2021-11-14] MEDS ORDERED: LACTULOSE 20 GM/30 ML UDCUP PO PRN (15:35)
[2021-11-14] MEDS ORDERED: DEXTROSE 10% 250 ML BAG IV PRN (15:35)
[2021-11-14] MEDS ORDERED: ONDANSETRON 4 MG/2 ML VIAL IV PRN (15:35)
[2021-11-14] MEDS ORDERED: VANCOMYCIN INJ 1,000 MG in SODIUM CHLORIDE 0.9% 250 ML IV SCH (16:16)
[2021-11-14] MEDS ORDERED: NON-FORMULARY MEDICATION (Oxycodone-Acetaminophen 10-325 mg Tablet) PO PRN (16:45)
[2021-11-14] MEDS ORDERED: cloNIDine 0.1 MG/24 HR PATCH TRANSDERM SCH (17:00)
[2021-11-14] MEDS: PIPERACILLIN/TAZOBACTAM 3,375 MG in SODIUM CHLORIDE 0.9% 100 ML IV SCH (17:13)
[2021-11-14] MEDS: VANCOMYCIN INJ 1,500 MG in SODIUM CHLORIDE 0.9% 500 ML IV SCH (18:23)
[2021-11-15] MEDS: PIPERACILLIN/TAZOBACTAM 3,375 MG in SODIUM CHLORIDE 0.9% 100 ML IV SCH ×3 (02:15→21:09)
[2021-11-15] MEDS: HEPARIN 5,000 UNIT/1 ML VIAL SUBCUT SCH ×3 (02:18→21:00)
[2021-11-15] MEDS: MORPHINE ER 30 MG TABLET PO SCH ×3 (03:00→18:20)
[2021-11-15 05:19] LABS: Basophils % 0.5 % (0.0-0.8); Eosinophils # 0.1 10*3/uL (0.0-0.87); Eosinophils % 1.4 % (0.00-10.9); Hematocrit 32.9 VOL% (35.7-47.0); Hemoglobin 10.7 GM/DL (12.0-16.0); Immature Granulocytes % 0.2 %; Immature Granulocytes Absolute 0.02 #; Lymphocytes # 1.2 10*3/uL (1.4-4.0); Lymphocytes % 13.5 % (21.3-54.2); Mean Corpuscular HGB Conc 32.5 GM/DL (32-36); Mean Corpuscular Volume 95.9 FL (87-102); Mean Platelet Volume 9.3 FL (9.6-12.0); Monocytes % 11.8 % (1.7-12.7); Neutrophils % 72.6 % (38.7-73.9); Platelet Count 293 T/CUMM (130-400); Red Blood Count 3.43 MC/CUMM (3.8-5.5); Red Cell Distribution Width 12.2 % (9.3-17.3); White Blood Count 8.7 T/CUMM (4-12)
[2021-11-15 05:42] LABS: Bilirubin,Total 0.6 MG/DL (0.20-1.00); Calcium 9.3 MG/DL (8.5-10.1); Osmolality,Calculated 275.7 MOS/KG (273-304); Potassium 3.3 MMOL/L (3.5-5.1); Total Protein 7.4 G/DL (6.4-8.2)
[2021-11-15] MEDS: VANCOMYCIN INJ 1,500 MG in SODIUM CHLORIDE 0.9% 500 ML IV SCH ×2 (07:22→18:21)
[2021-11-15] MEDS ORDERED: POTASSIUM CHLORIDE 20 MEQ TABLET PO ONE (08:03)
[2021-11-15] MEDS: LEVOTHYROXINE 100 MCG TABLET PO SCH (09:39)
[2021-11-15] MEDS: ASPIRIN EC 81 MG TABLET PO SCH (10:18)
[2021-11-15] MEDS ORDERED: BUPIVACAINE MPF 0.25% 10 ML VIAL ONE (11:43)
[2021-11-15] MEDS ORDERED: LIDOCAINE 2% 5 ML VIAL ONE (11:47)
[2021-11-15] MEDS ORDERED: propofoL 200 MG/20 ML VIAL IV ONE (11:47)
[2021-11-15] MEDS ORDERED: GLYCOPYRROLATE 0.4 MG/2 ML VIAL ONE (11:48)
[2021-11-15] MEDS ORDERED: KETAMINE 500 MG/10 ML VIAL ONE (11:48)
[2021-11-15] MEDS: SERTRALINE 25 MG TABLET PO SCH (21:09)
[2021-11-15] MEDS: DULoxetine 20 MG CAPSULE PO SCH (21:09)
[2021-11-15] MEDS: HYDROmorphone 1 MG/1 ML SYRINGE IV PRN (21:11)
[2021-11-16] MEDS: HYDROmorphone 1 MG/1 ML SYRINGE IV PRN (01:37)
[2021-11-16] MEDS: MORPHINE ER 30 MG TABLET PO SCH ×3 (03:49→18:00)
[2021-11-16] MEDS: PIPERACILLIN/TAZOBACTAM 3,375 MG in SODIUM CHLORIDE 0.9% 100 ML IV SCH ×3 (03:50→21:55)
[2021-11-16 07:17] LABS: Basophils % 0.4 % (0.0-0.8); Eosinophils # 0.2 10*3/uL (0.0-0.87); Eosinophils % 2.5 % (0.00-10.9); Hematocrit 28.2 VOL% (35.7-47.0); Hemoglobin 9.1 GM/DL (12.0-16.0); Immature Granulocytes % 0.2 %; Immature Granulocytes Absolute 0.02 #; Lymphocytes # 1.3 10*3/uL (1.4-4.0); Lymphocytes % 15.9 % (21.3-54.2); Mean Corpuscular HGB Conc 32.3 GM/DL (32-36); Mean Corpuscular Volume 94.9 FL (87-102); Mean Platelet Volume 8.7 FL (9.6-12.0); Monocytes % 12.5 % (1.7-12.7); Neutrophils % 68.5 % (38.7-73.9); Platelet Count 283 T/CUMM (130-400); Red Blood Count 2.97 MC/CUMM (3.8-5.5); Red Cell Distribution Width 12.4 % (9.3-17.3); White Blood Count 8.1 T/CUMM (4-12)
[2021-11-16] MEDS: VANCOMYCIN INJ 1,500 MG in SODIUM CHLORIDE 0.9% 500 ML IV SCH ×2 (07:17→17:45)
[2021-11-16] MEDS: LEVOTHYROXINE 100 MCG TABLET PO SCH (07:17)
[2021-11-16] MEDS ORDERED: MAGNESIUM SULF RIDER 2 GM/50 ML PREMIX IV PRN (07:42)
[2021-11-16] MEDS ORDERED: MAGNESIUM SULF RIDER 4 GM/100 ML PREMIX IV PRN (07:42)
[2021-11-16 07:44] LABS: Albumin 2.5 G/DL (3.4-5.0); Bilirubin,Total 0.6 MG/DL (0.20-1.00); Calcium 8.8 MG/DL (8.5-10.1); Osmolality,Calculated 281.3 MOS/KG (273-304); Potassium 3.5 MMOL/L (3.5-5.1); Total Protein 6.5 G/DL (6.4-8.2)
[2021-11-16] MEDS: DULoxetine 20 MG CAPSULE PO SCH ×2 (09:00→21:34)
[2021-11-16] MEDS: ASPIRIN EC 81 MG TABLET PO SCH (09:00)
[2021-11-16] MEDS: HEPARIN 5,000 UNIT/1 ML VIAL SUBCUT SCH ×2 (09:01→21:57)
[2021-11-16] MEDS: KETOROLAC 15 MG/1 ML VIAL IV SCH ×3 (10:31→21:56)
[2021-11-16] MEDS ORDERED: METHOCARBAMOL 500 MG TABLET PO PRN (12:27)
[2021-11-16] MEDS: GABAPENTIN 400 MG CAPSULE PO SCH ×2 (15:30→21:27)
[2021-11-16] MEDS: CALCIUM (CARBONATE)/VITAMIN D 600 MG-400 UNIT TABLET PO SCH ×2 (15:30→21:27)
[2021-11-16] MEDS ORDERED: MULTIVITAMIN (CENTRUM) TABLET PO SCH (21:00)
[2021-11-16] MEDS ORDERED: CHOLECALCIFEROL 5,000 UNIT TABLET PO SCH (21:00)
[2021-11-16] MEDS: SERTRALINE 25 MG TABLET PO SCH (21:27)
[2021-11-17] MEDS: KETOROLAC 15 MG/1 ML VIAL IV SCH ×2 (03:31→09:01)
[2021-11-17] MEDS: PIPERACILLIN/TAZOBACTAM 3,375 MG in SODIUM CHLORIDE 0.9% 100 ML IV SCH (03:40)
[2021-11-17 05:13] LABS: Basophils % 0.5 % (0.0-0.8); Eosinophils # 0.3 10*3/uL (0.0-0.87); Eosinophils % 4.3 % (0.00-10.9); Hemoglobin 8.8 GM/DL (12.0-16.0); Immature Granulocytes % 0.6 %; Immature Granulocytes Absolute 0.04 #; Lymphocytes # 1.9 10*3/uL (1.4-4.0); Lymphocytes % 30.9 % (21.3-54.2); Mean Corpuscular HGB Conc 32.6 GM/DL (32-36); Mean Corpuscular Volume 96.1 FL (87-102); Mean Platelet Volume 9.2 FL (9.6-12.0); Monocytes # 0.9 10*3/uL (0.11-0.8); Neutrophils % 49.7 % (38.7-73.9); Platelet Count 303 T/CUMM (130-400); Red Blood Count 2.81 MC/CUMM (3.8-5.5); Red Cell Distribution Width 12.3 % (9.3-17.3); White Blood Count 6.2 T/CUMM (4-12)
[2021-11-17 05:46] LABS: Albumin 2.5 G/DL (3.4-5.0); Bilirubin,Total 0.4 MG/DL (0.20-1.00); Calcium 9.1 MG/DL (8.5-10.1); Osmolality,Calculated 279.4 MOS/KG (273-304); Potassium 3.5 MMOL/L (3.5-5.1); Total Protein 6.3 G/DL (6.4-8.2)
[2021-11-17] MEDS: MORPHINE ER 30 MG TABLET PO SCH (06:07)
[2021-11-17] MEDS ORDERED: LEVOTHYROXINE 112 MCG TABLET PO SCH (06:30)
[2021-11-17] MEDS ORDERED: LEVOTHYROXINE 88 MCG TABLET PO SCH (06:30)
[2021-11-17] MEDS: GABAPENTIN 400 MG CAPSULE PO SCH (09:00)
[2021-11-17] MEDS: ASPIRIN EC 81 MG TABLET PO SCH (09:00)
[2021-11-17] MEDS: VANCOMYCIN INJ 1,500 MG in SODIUM CHLORIDE 0.9% 500 ML IV SCH (09:00)
[2021-11-17] MEDS: DULoxetine 20 MG CAPSULE PO SCH (09:00)
[2021-11-17] MEDS: CALCIUM (CARBONATE)/VITAMIN D 600 MG-400 UNIT TABLET PO SCH (09:01)
[2021-11-17] MEDS: HEPARIN 5,000 UNIT/1 ML VIAL SUBCUT SCH (09:10)
[2021-11-17] MEDS: POTASSIUM CHLORIDE 20 MEQ TABLET PO PRN ×2 (09:30→11:44)
[2021-11-17 12:00] VITALS: BP 146/61
== END 2021-11-17 12:25 | disposition home health service (06) | DRG 617 ==
LOC: N.EDINP 11:56 → N.ED 11:56 → SUATTDRO 15:35 → N.3E 17:05 → SUATTDRO 11-16 13:00
PROVIDERS: ADMIT Internal Medicine; ATTEND Internal Medicine